=== PATIENT | male | born 1950 | race Caucasian/White ===

== ENCOUNTER 2023-09-16 13:26 | Outpatient (AMB) | payer MEDICARE, SELFPAY ==
--- NOTE | 2023-09-16 13:34 | A.SPINEOV_ITS ---
Intake Intake Visit Reasons: low back pain Intake Note: Mr. Armendariz is here today c/o low back pain. MRI done @ [facility]/brought disc. Medical Physiologist Required: No Assessment & Plan Assessment & Plan (1) Lumbar stenosis: Code(s): M48.061 - Spinal stenosis, lumbar region without neurogenic claudication Plan Dear DR Fairbanks, . We saw your patient Mr. Armendariz in the office today for complaint of left- sided buttock pain. He tells me that he has had the symptoms for about 5-6 years. They are only present at night and in the morning but once he gets up and starts to walk the symptoms will generally go away. He has no interruption in his daily activities or his quality of life. At night he will use Advil and used various muscle creams and he does get some relief. He has no pain radiating down the leg. He does have a slight amount of back pain but nothing to complain of. He went through physical therapy without any relief. He is here today to see us with an MRI done showing moderate to severe stenosis at L4- 5. PMH: He tells me he is very healthy, he has no major medical problems other than some mild BPH, cholesterol and hernia surgery in 2006 and cataract surgery in 2006 Social hx: He does not smoke, drink Medications: Flomax, atorvastatin, baclofen, amitriptyline Allergies: None Physical exam: Awake alert oriented he appears much younger than his stated age, he has full strength of bilateral lower extremities, SI joint testing and hip joint testing maneuvers were all negative. Reflexes were normal. Imaging review: Lumbar MRI done at [facility] in 2022 reveals moderate to severe stenosis at L4-5 amongst other degenerative changes. He has varying degrees of disc degeneration throughout the whole lumbar spine but L4-5 is clearly the worst. Impression: 73-year-old male presents with left buttock pain at night. He has no pain when he is up moving around, bending or doing activities. He is very active, walks many miles every day with his and does yoga. I explained to him that lumbar stenosis on an MRI in a patient his age can be a normal finding and that in and of itself does not need surgery. We also discussed the fact that his symptoms would be rather unusual for lumbar stenosis because he has pain when he is lying down but not when he is up and active. Therefore, I told him we would need to do a little more investigating before would be through the ask about offering him surgery. Specifically I asked him to consider an L5 nerve block just to be sure we are talking about the stenotic level as the source of his pain. We would be looking for a long-term affect, but rather just to wait to confirm that the pain is coming from that spot. He was not interested in this at all. I told him that if things escalate or it starts to bother him further down his leg or well he is walking to call us back we would be glad to re-evaluate. Thank you for allowing us to care for your patient. The total time spent with this visit with this patient was 45 minutes reviewing history, physical exam, lumbar imaging review, and implementation of treatment plan or further diagnostic testing Morris Hannah MD,PhD [facility] Coding Level of Care Code New Pt Level 4 (42000) Diagnoses Lumbar stenosis M48.061
== END 2023-09-16 14:50 | disposition home or self-care (01) ==
PROVIDERS: PCP Internal Medicine; Visit Provider Physician Assistant
DX: M48.061 Spinal stenosis, lumbar region without neurogenic claudication (principal)
CPT/HCPCS: 99204

== ENCOUNTER → 2023-09-16 13:26 | Outpatient (BNVA) | payer MEDICARE, SELFPAY | PROVIDERS: PCP Internal Medicine; Visit Provider Physician Assistant | DX: M48.061 Spinal stenosis, lumbar region without neurogenic claudication (principal) | CPT/HCPCS: 99202 ==